=== PATIENT | female | born 1955 | race Caucasian/White ===

== ENCOUNTER 2018-12-22 07:42 | Day surgery (SDC) | payer MEDICARE ==
[~2018-12-22] VITALS: Ht 154.9 cm; Wt 44.8 kg
[~2018-12-22 07:42] MED LIST: DESV50 PO
== END 2018-12-22 10:44 | disposition home or self-care (01) ==
LOC: ORSCSDS 07:42
PROVIDERS: Student in an Organized Health Care Education/Training Program
PROC: 0DB48ZX Excision of Esophagogastric Junction, Via Natural or Artificial Opening Endoscopic, Diagnostic (ICD-10-PCS; principal; 2018-12-22 09:00)
PROC: 0DB98ZX Excision of Duodenum, Via Natural or Artificial Opening Endoscopic, Diagnostic (ICD-10-PCS; principal; 2018-12-22 09:00)
PROC: 0DB68ZX Excision of Stomach, Via Natural or Artificial Opening Endoscopic, Diagnostic (ICD-10-PCS; principal; 2018-12-22 09:00)
PROC: 0DBN8ZX Excision of Sigmoid Colon, Via Natural or Artificial Opening Endoscopic, Diagnostic (ICD-10-PCS; principal; 2018-12-22 09:00)
PROC: 0DBE8ZX Excision of Large Intestine, Via Natural or Artificial Opening Endoscopic, Diagnostic (ICD-10-PCS; principal; 2018-12-22 09:00)
DX: R10.13 Epigastric pain (principal); K22.2 Esophageal obstruction; K44.9 Diaphragmatic hernia without obstruction or gangrene; K29.80 Duodenitis without bleeding; K29.70 Gastritis, unspecified, without bleeding; K21.9 Gastro-esophageal reflux disease without esophagitis; K63.5 Polyp of colon; Z12.11 Encounter for screening for malignant neoplasm of colon; F90.9 Attention-deficit hyperactivity disorder, unspecified type; F32.9 Major depressive disorder, single episode, unspecified; Z87.891 Personal history of nicotine dependence; Z79.899 Other long term (current) drug therapy
CPT/HCPCS: 88305; 88342; J2704; J7120

== ENCOUNTER 2025-02-23 12:55 | Day surgery (SDC) | payer OTHER ==
[~2025-02-23] VITALS: Ht 154.9 cm; Wt 48.4 kg
[~2025-02-23 12:55] MED LIST changes: +Bupivacaine 0.5% W/EPI 1:200000 SDV 30 ML Vial ONE
[2025-02-23] MEDS ORDERED: SERT100 (13:22)
[2025-02-23] MEDS ORDERED: VITAMIN D325 MC3 (13:23)
[2025-02-23] MEDS ORDERED: ATOR20 (13:23)
[2025-02-23] MEDS ORDERED: QUNOL MEGA COQ100 MG (13:24)
[2025-02-23] MEDS ORDERED: TURMERIC750 MG (13:24)
[2025-02-23] MEDS ORDERED: CeFAZolin Sodium 2,000 MG VIAL ONE (13:50)
[2025-02-23] MEDS ORDERED: Ondansetron HCl 2 MG / ML 2ML Vial ONE (15:30)
[2025-02-23] MEDS ORDERED: Dexamethasone Sod Phos 10 MG/ML 1ML VIAL ONE (15:30)
[2025-02-23] MEDS ORDERED: FentaNYL Citrate 50 MCG/ML 2 ML Injection ONE (15:30)
[2025-02-23] MEDS ORDERED: Midazolam HCl 1MG / ML 2ML Vial ONE (15:31)
[2025-02-23] MEDS ORDERED: HYDROcodone 5-APAP 325 TAB ONE (16:27)
--- NOTE | 2025-02-23 16:29 | NUR ---
02/23/25 [id number] ROSETTA ESTRELLA RECEIVED REPORT FROM MARY PEACE. ASSUMED CARE OF JOSELIN. PT DENIES PAIN/NAUSEA AT THIS TIME. PT IN BED, VSS.
[2025-02-23 16:32] VITALS: BP 113/71
== END 2025-02-23 16:47 | disposition home or self-care (01) ==
LOC: ORSCSDS 12:55
PROVIDERS: Podiatrist Foot & Ankle Surgery
PROC: 0SRQ0JZ Replacement of Left Toe Phalangeal Joint with Synthetic Substitute, Open Approach (ICD-10-PCS; principal; 2025-02-23 14:30)
DX: M20.42 Other hammer toe(s) (acquired), left foot (principal); F41.9 Anxiety disorder, unspecified; F32.A Depression, unspecified; E78.5 Hyperlipidemia, unspecified; M81.0 Age-related osteoporosis without current pathological fracture; Z79.899 Other long term (current) drug therapy; Z87.891 Personal history of nicotine dependence
CPT/HCPCS: A6253; A9270; J0690; J1100; J2250; J2405; J2704; J3010; J7120